=== PATIENT | female | born 1955 | race Two or more races ===

== ENCOUNTER → 2016-10-18 | Outpatient (CLI) | payer OTHER | END | disposition home or self-care (01) | LOC: CFH 09:06 | DX: J98.9 Respiratory disorder, unspecified (principal) | CPT/HCPCS: 71250 ==

== ENCOUNTER → 2017-05-02 | Outpatient (CLI) | payer OTHER | END | disposition home or self-care (01) | LOC: CFH 13:33 | PROVIDERS: ATTEND Internal Medicine | DX: R91.8 Other nonspecific abnormal finding of lung field (principal); J47.9 Bronchiectasis, uncomplicated | CPT/HCPCS: 71250 ==

== ENCOUNTER 2018-08-21 13:26 | Emergency (ER) | payer OTHER ==
[~2018-08-21] VITALS: Ht 157.5 cm; Wt 47.3 kg
[2018-08-21 15:06] LABS: ALANINE AMINOTRANSFERASE 28 U/L (12-78); ALBUMIN 3.5 g/dL (3.4-5.0); ANION GAP 4 mmol/L (5-15); BASOPHILS # (AUTO) 0.03 x10^3/uL (0-0.1); BASOPHILS % (AUTO) 0 % (0-1); CALCIUM 8.5 mg/dL (8.5-10.1); CHLORIDE 106 mmol/L (98-107); CREATININE 0.67 mg/dL (0.55-1.02); EOSINOPHILS % (AUTO) 1 % (1-7); LYMPHOCYTES # (AUTO) 1.52 x10^3/uL (1-3.4); LYMPHOCYTES % (AUTO) 14 % (22-44); MD NO; MEAN CORPUSCULAR HEMOGLOBIN 29.4 pg (27.0-34.8); MEAN CORPUSCULAR HGB CONC 32.8 g/dL (32.4-35.8); MEAN CORPUSCULAR VOLUME 89.6 fL (80-100); MEAN PLATELET VOLUME 7.3 fL (7.4-10.4); MONOCYTES # (AUTO) 0.63 x10^3/uL (0.2-0.8); MONOCYTES % (AUTO) 6 % (2-9); NEUTROPHILS # (AUTO) 8.86 x10^3/uL (1.8-6.8); NEUTROPHILS % (AUTO) 80 % (42-75); PLATELET COUNT 412 x10^3/uL (130-400); RED BLOOD COUNT 4.51 x10^6/uL (3.82-5.3); RED CELL DISTRIBUTION WIDTH 13.6 % (9.6-15.2)
[2018-08-21 15:11] LABS: ALKALINE PHOSPHATASE 128 U/L (45-117); BILIRUBIN,TOTAL 0.1 mg/dL (0.2-1.0); TOTAL PROTEIN 8.7 g/dL (6.4-8.2); TROPONIN I < 0.015 ng/mL (0.000-0.045)
--- NOTE | 2018-08-21 15:14 | NUR ---
PT TO ROOM FROM LOBBY .
--- NOTE | 2018-08-21 15:28 | NUR ---
pt instructed to provide clean catch ua, pt up to bathroom to void, gait steady.
--- NOTE | 2018-08-21 15:45 | NUR ---
pt presents to ED with c/o left flank pain x 5 days, as well as bilateral upper back pain which is has been present for years. pt denies n/v/d, denies n/t to any extremities. pt a&o, resps even and unlabored. bp and spo2 monitors in place. daughters at bedside, pt is primarily sinhala speaking, refuses interpretive services at this time, elects to use daughters as interpreters. EDMD Sahm at bedside to evaluate.
[2018-08-21 15:55] LABS: MICROSCOPIC AUTO
[2018-08-21 15:57] LABS: CULTURE INDICATED? YES
[2018-08-21] MEDS ORDERED: IBUPROFEN 600 MG TABLET PO ONE (16:00)
[2018-08-21] MEDS ORDERED: METHOCARBAMOL 750 MG TABLET PO ONE (16:00)
[2018-08-21] MEDS ORDERED: IBUPROFEN 600 MG TABLET ONE (16:03)
[2018-08-21] MEDS ORDERED: METHOCARBAMOL 750 MG TABLET ONE (16:03)
[2018-08-21 17:17] VITALS: BP 123/83
--- NOTE | 2018-08-21 17:17 | NUR ---
pt and family given dc instructions in [place]. pt a&o, resps even and unlabored. pt states pain relieved by meds given. pt amb to dc desk with steady gait, accompanied by daughters who are to drive her home. abdirahman at [place].
== END 2018-08-21 17:18 | disposition home or self-care (01) ==
LOC: ED 16:07
DX: R53.1 Weakness (principal); M54.5 Low back pain; M54.6 Pain in thoracic spine
CPT/HCPCS: 36415; 74022; 80053; 81001; 83690; 84484; 85025; 87086; 93005; 99284